=== PATIENT | male | born 1960 | race Caucasian/White ===

== ENCOUNTER → 2020-02-07 | Outpatient (CLI) | payer OTHER ==
[~2020-02-07] MED LIST: REGADENOSON 0.4 MG/5 ML SYRINGE ONE
== END | disposition home or self-care (01) ==
LOC: CFH 11:51
PROVIDERS: ATTEND Internal Medicine Cardiovascular Disease
DX: I08.0 Rheumatic disorders of both mitral and aortic valves (principal); R94.31 Abnormal electrocardiogram [ECG] [EKG]; I10 Essential (primary) hypertension; I25.89 Other forms of chronic ischemic heart disease; Z87.891 Personal history of nicotine dependence
CPT/HCPCS: 78452; 93017; 93306; A9502; J2785

== ENCOUNTER 2020-06-19 09:39 | Day surgery (SDC) | payer OTHER ==
[~2020-06-19] VITALS: Ht 182.9 cm; Wt 110.0 kg
[2020-06-19 10:25] VITALS: BP 142/76
[2020-06-19] MEDS ORDERED: METF1000 PO (10:33)
[2020-06-19] MEDS ORDERED: GABA600T7 PO ×2 (10:35→10:37)
[2020-06-19] MEDS ORDERED: TAMS-11 PO (10:35)
[2020-06-19] MEDS ORDERED: OMEP-110 PO (10:37)
[2020-06-19] MEDS ORDERED: LIRA0.6P SQ (10:37)
[2020-06-19] MEDS ORDERED: ATOR20TA37 PO (10:37)
[2020-06-19] MEDS ORDERED: MELA10CA PO (10:37)
[2020-06-19] MEDS ORDERED: METO25TA91 PO (10:37)
[2020-06-19] MEDS ORDERED: AMLO1CAP PO (10:37)
[2020-06-19] MEDS ORDERED: Zinc PO (10:39)
[2020-06-19] MEDS ORDERED: MIDAZOLAM 1 MG/ML, 5ML ONE (10:55)
[2020-06-19] MEDS ORDERED: LIDOCAINE 2%, 20ML ONE (10:55)
[2020-06-19] MEDS ORDERED: FENTANYL PF 100 MCG/2ML ONE (10:55)
[2020-06-19 11:11] LABS: ANION GAP 8 mmol/L (5-15); CALCIUM 8.7 mg/dL (8.5-10.1); CHLORIDE 104 mmol/L (98-107); CREATININE 0.62 mg/dL (0.7-1.3)
[2020-06-19 11:24] LABS: BASOPHILS % (AUTO) 1 % (0-1); EOSINOPHILS % (AUTO) 3 % (1-7); LYMPHOCYTES % (AUTO) 15 % (22-44); MEAN CORPUSCULAR HEMOGLOBIN 33.7 pg (27.5-34.5); MEAN PLATELET VOLUME 8.5 fL (7.4-10.4); MONOCYTES % (AUTO) 4 % (2-9); NEUTROPHILS % (AUTO) 77 % (42-75); PLATELET COUNT 248 x10^3/uL (130-400); RED BLOOD COUNT 4.96 x10^6/uL (4.38-5.82); RED CELL DISTRIBUTION WIDTH 13.7 % (9.4-14.8)
[2020-06-19 11:35] LABS: MD NO
== END 2020-06-19 16:44 | disposition home or self-care (01) ==
LOC: CACL 09:39
PROVIDERS: ATTEND Internal Medicine Cardiovascular Disease
DX: R94.39 Abnormal result of other cardiovascular function study (principal); I10 Essential (primary) hypertension; E11.9 Type 2 diabetes mellitus without complications; E78.5 Hyperlipidemia, unspecified; K21.9 Gastro-esophageal reflux disease without esophagitis; F17.210 Nicotine dependence, cigarettes, uncomplicated; E66.3 Overweight; Z68.34 Body mass index [BMI] 34.0-34.9, adult; Z79.84 Long term (current) use of oral hypoglycemic drugs; Z79.899 Other long term (current) drug therapy; Z98.890 Other specified postprocedural states; Z82.49 Family history of ischemic heart disease and other diseases of the circulatory system; Z80.9 Family history of malignant neoplasm, unspecified
CPT/HCPCS: 36415; 80048; 85025; 93458; 99156; C1769; C1894; J2250; J3010; Q9967